=== PATIENT | female | born 1990 | race Two or more races ===

== ENCOUNTER 2020-08-26 10:23 | Emergency (ER) | payer OTHER ==
[2020-08-26 10:39] VITALS: BP 118/80
--- NOTE | 2020-08-26 11:18 | ED Physician Documentation ---
PD HPI URI - Stated complaint Stated Complaint: COUGH/SOA/RUNNY NOSE - Chief complaint Chief Complaint: General - History obtained from History obtained from: Patient - History of Present Illness Timing - onset: How many days ago (2) Timing duration: Days (2) Timing details: Abrupt onset, Still present Associated symptoms: Fever (subjective, but had temp check normal), Chills, Nasal congestion, Dry cough, NVD (nausea and some loose stool. No vomiting.). No: Sore throat Contributing factors: No: Sick contact, Travel, Immunocompromised Similar symptoms before: Has not had sx before Review of Systems Constitutional: reports: Chills, Myalgias Nose: reports: Congestion Throat: denies: Sore throat Respiratory: reports: Cough. denies: Dyspnea, Wheezing GI: reports: Nausea. denies: Vomiting, Diarrhea (couple loose stools) : denies: Dysuria Neurologic: denies: Altered mental status, Headache PD PAST MEDICAL HISTORY - Past Medical History Past Medical History: No - Allergies Allergies/Adverse Reactions: Allergies Allergy/AdvReac Type Severity Reaction Status Date / Time No Known Drug Allergies Allergy Verified 08/26/20 12:03 - Social History Does the pt smoke?: No Smoking Status: Never smoker PD ED PE NORMAL - Vitals Vital signs reviewed: Yes - General General: Alert and oriented X 3, No acute distress, Well developed/nourished - HEENT HEENT: Ears normal, Moist mucous membranes, Pharynx benign - Neck Neck: Supple, no meningeal sign, No adenopathy - Cardiac Cardiac: RRR, No murmur - Respiratory Respiratory: Clear bilaterally - Abdomen Abdomen: Soft, Non tender - Derm Derm: Normal color, Warm and dry - Neuro Neuro: Alert and oriented X 3, No motor deficit, Normal speech Results - Vitals Vitals: Vital Signs - 24 hr 08/26/20 10:30 Temperature 36.8 C Heart Rate 80 Respiratory 14 Rate Blood Pressure 118/80 O2 Saturation 98 Oxygen O2 Source Room air - Labs Labs: Laboratory Tests 08/26/20 11:56 Influenza A (Rapid) Negative Influenza B (Rapid) Negative PD MEDICAL DECISION MAKING - ED course Complexity details: considered differential (Most likely viral illness. Of particular concern would be coronavirus so we can test for that. Can test for influenza as well. She is given a note for 1 to 2 days off work pending the COVID test results.), d/w patient Departure - Departure Disposition: 01 Home, Self Care Clinical Impression: Upper respiratory infection Qualifiers: URI type: unspecified URI Qualified Code(s): J06.9 - Acute upper respiratory infection, unspecified Condition: Stable Record reviewed to determine appropriate education?: Yes Instructions: ED Upper Resp Infec No Abx Tx [facility] [Provider Group] Comments: Your Covid test should result in 1 to 2 days. Sick in quarters and stay well- hydrated. Tylenol or ibuprofen for fever or chills. Tessalon if needed for cough. Ondansetron if needed for nausea. You can still use [id number] cough medicine or NyQuil. Return to work if your test is negative and you are feeling better. Forms: Activity restrictions Discharge Date/Time: 08/26/20 12:16
[2020-08-26] MEDS ORDERED: BENZONATATE 100 MG CAPSULE PO STA (11:44)
== END 2020-08-26 12:16 | disposition home or self-care (01) ==
LOC: ED 10:23
DX: J06.9 Acute upper respiratory infection, unspecified (principal); Z20.818 Contact with and (suspected) exposure to other bacterial communicable diseases
CPT/HCPCS: 87275; 87276; 87635; 99282; 99283; A9270